=== PATIENT | male | born 1960 | race Caucasian/White ===

== ENCOUNTER → 2016-06-30 | Outpatient (CLI) | payer OTHER ==
[~2016-06-30] MED LIST: ASPI81TA28 PO; ATOR10TA88; EMPA1TAB PO; GLC/500 PO; LISI-725 PO; METH10TA2 PO; OMEP40CA PO
[2016-06-30 14:07] LABS: ESTIMATED AVERAGE GLUCOSE 166 mg/dl; HA1C FLAG Normal (Normal)
[2016-06-30 16:12] LABS: AST/SGOT 16 U/L (15-37); BLOOD UREA NITROGEN 17 mg/dl (7-18); BUN/CREATININE RATIO 18.3 (10-20); CALCIUM 9.1 mg/dl (8.5-10.1); CARBON DIOXIDE 27 mmol/L (21-32); CHLORIDE 103 mmol/L (98-107); CHOLESTEROL 179 mg/dl (0-200); CREATININE 0.95 mg/dl (0.60-1.40); GLUCOSE 139 mg/dl (70-99); POTASSIUM 4.4 mmol/L (3.5-5.1); SODIUM 141 mmol/L (136-145)
[2016-06-30 16:15] LABS: ALB/GLOB RATIO 1.2 (0.9-2); ALKALINE PHOSPHATASE 79 U/L (45-117); ALT/SGPT 38 U/L (12-78); CHOLESTEROL/HDL RATIO 4.5; HDL CHOLESTEROL 40 mg/dl; LDL CHOLESTEROL CALCULATED 106 mg/dl; TRIGLYCERIDES 163 mg/dl (0-150); VERY LOW DENSITY LIPOPROT CALC 33 mg/dl
== END | disposition home or self-care (01) ==
LOC: C.LABMFLN 07:50
PROVIDERS: ATTEND Family Medicine
DX: E78.5 Hyperlipidemia, unspecified (principal); I10 Essential (primary) hypertension; E11.9 Type 2 diabetes mellitus without complications; E53.8 Deficiency of other specified B group vitamins

== ENCOUNTER → 2016-10-01 | Outpatient (CLI) | payer OTHER ==
[~2016-10-01] MED LIST changes: +ATOR10TA82; -ATOR10TA88
== END | disposition home or self-care (01) ==
LOC: C.LABSPEC 13:18
PROVIDERS: ATTEND Family Medicine
DX: Z12.11 Encounter for screening for malignant neoplasm of colon (principal)

== ENCOUNTER → 2016-12-01 | Outpatient (CLI) | payer OTHER ==
[~2016-12-01] MED LIST changes: -ATOR10TA82; +ATOR10TA88
[2016-12-01 13:13] LABS: BASO % 0.4 %; BASO ABS # 0.03 K/uL (0-0.2); COMPLETE YES; EOS % 3.1 %; HEMATOCRIT 44.7 % (42-52); LYMPH ABS # 2.19 K/uL (1.2-3.4); MEAN CELL VOLUME 88.7 fL (80-100); MEAN CORPUSCULAR HGB CONC 31.5 g/dl (32-36); MONO % 10.1 %; NEUT % 55.4 %; PLATELET COUNT 190 K/uL (130-400); RED BLOOD COUNT 5.04 M/uL (4.7-6.1); WHITE BLOOD COUNT 7.31 K/uL (4.8-10.8)
[2016-12-01 13:30] LABS: BLOOD UREA NITROGEN 18 mg/dl (7-18); BUN/CREATININE RATIO 19.4 (10-20); CALCIUM 9.1 mg/dl (8.5-10.1); CARBON DIOXIDE 29 mmol/L (21-32); CHLORIDE 102 mmol/L (98-107); CHOLESTEROL 163 mg/dl (0-200); CREATININE 0.93 mg/dl (0.60-1.40); GLUCOSE 146 mg/dl (70-99); POTASSIUM 4.4 mmol/L (3.5-5.1); SODIUM 138 mmol/L (136-145)
[2016-12-01 13:35] LABS: ALB/GLOB RATIO 1.1 (0.9-2); ALKALINE PHOSPHATASE 76 U/L (45-117); ALT/SGPT 39 U/L (12-78); AST/SGOT 22 U/L (15-37); CHOLESTEROL/HDL RATIO 4.3; HDL CHOLESTEROL 38 mg/dl; LDL CHOLESTEROL CALCULATED 97 mg/dl; PROSTATE SPECIFIC ANTIGEN 0.467 ng/ml (0.000-4.000); TRIGLYCERIDES 139 mg/dl (0-150); VERY LOW DENSITY LIPOPROT CALC 28 mg/dl
[2016-12-01 13:41] LABS: RATIO 6.8 mcg/mg (0-30.0)
[2016-12-01 14:19] LABS: ESTIMATED AVERAGE GLUCOSE 171 mg/dl; HA1C FLAG Normal (Normal)
== END | disposition home or self-care (01) ==
LOC: C.LABMFLN 08:10
PROVIDERS: ATTEND Family Medicine
DX: E78.5 Hyperlipidemia, unspecified (principal); I10 Essential (primary) hypertension; E53.8 Deficiency of other specified B group vitamins

== ENCOUNTER → 2017-04-08 | Outpatient (CLI) | payer OTHER ==
[~2017-04-08] MED LIST changes: +ATOR10TA82; -ATOR10TA88
[2017-04-09 05:22] LABS: ESTIMATED AVERAGE GLUCOSE 192 mg/dl; HA1C FLAG Normal (Normal)
== END | disposition home or self-care (01) ==
LOC: C.LABMFLN 13:49
PROVIDERS: ATTEND Family Medicine
DX: E78.5 Hyperlipidemia, unspecified (principal); I10 Essential (primary) hypertension; E53.8 Deficiency of other specified B group vitamins; E11.9 Type 2 diabetes mellitus without complications; F11.20 Opioid dependence, uncomplicated